=== PATIENT | female | born 2000 | race African-American/Black ===

== ENCOUNTER 2020-02-29 11:53 | Emergency (ER) | payer OTHER ==
[~2020-02-29] VITALS: Ht 152.4 cm; Wt 54.5 kg
[2020-02-29] MEDS ORDERED: ABX PO (12:05)
[2020-02-29 12:46] VITALS: BP 106/61
== END 2020-02-29 12:57 | disposition home or self-care (01) ==
LOC: EMS 11:54
DX: U07.1 COVID-19 (principal); F12.90 Cannabis use, unspecified, uncomplicated
CPT/HCPCS: 71045-TC

== ENCOUNTER 2022-05-31 18:42 | Emergency (ER) | payer OTHER ==
[~2022-05-31] VITALS: Ht 154.9 cm; Wt 49.5 kg
[~2022-05-31 18:42] MED LIST: ABX PO
[2022-05-31] MEDS ORDERED: IBUPROFEN 600 MG TABLET PO ONE (20:30)
[2022-05-31] MEDS ORDERED: ACETAMINOPHEN 325 MG TABLET PO ONE (20:30)
[2022-05-31] MEDS ORDERED: IBUP-2070 PO (20:31)
[2022-05-31 21:01] VITALS: BP 116/61
== END 2022-05-31 21:03 | disposition home or self-care (01) ==
LOC: EMS 18:44
DX: R51.9 Headache, unspecified (principal); F12.90 Cannabis use, unspecified, uncomplicated; V89.2XXA Person injured in unspecified motor-vehicle accident, traffic, initial encounter; Y93.89 Activity, other specified; Y92.89 Other specified places as the place of occurrence of the external cause; Y99.8 Other external cause status
CPT/HCPCS: 99283

== ENCOUNTER 2023-05-20 04:41 | Emergency (ER) | payer OTHER ==
[~2023-05-20] VITALS: Ht 157.5 cm; Wt 54.0 kg
[~2023-05-20 04:41] MED LIST changes: -ABX PO; +IBUP-1492 PO
[2023-05-20 04:48] VITALS: TEMP 97.5
[2023-05-20] MEDS ORDERED: IBUP-1492 PO (05:30)
[2023-05-20] MEDS ORDERED: IBUPROFEN 600 MG TABLET PO ONE (05:30)
[2023-05-20 05:57] VITALS: BP 110/60; PULSE 60; RESP 15
== END 2023-05-20 05:58 | disposition home or self-care (01) ==
LOC: EMS 04:46
DX: S46.812A Strain of other muscles, fascia and tendons at shoulder and upper arm level, left arm, initial encounter (principal); F12.90 Cannabis use, unspecified, uncomplicated; V49.88XA Car occupant (driver) (passenger) injured in other specified transport accidents, initial encounter; Y93.89 Activity, other specified; Y92.481 Parking lot as the place of occurrence of the external cause; Y99.8 Other external cause status
CPT/HCPCS: 99282; Z7502

== ENCOUNTER 2024-03-04 05:34 | Emergency (ER) | payer OTHER ==
[~2024-03-04] VITALS: Ht 152.4 cm; Wt 54.4 kg
[2024-03-04 05:40] VITALS: BP 107/57; PULSE 71; RESP 18; TEMP 98.1
== END 2024-03-04 06:41 | disposition home or self-care (01) ==
LOC: EMS 05:35
DX: S60.445A External constriction of left ring finger, initial encounter (principal); F17.210 Nicotine dependence, cigarettes, uncomplicated; W49.04XA Ring or other jewelry causing external constriction, initial encounter; Y93.89 Activity, other specified; Y92.89 Other specified places as the place of occurrence of the external cause; Y99.8 Other external cause status
CPT/HCPCS: 99282; Z7502

== ENCOUNTER 2024-08-05 20:18 | Emergency (ER) | payer OTHER ==
[~2024-08-05] VITALS: Ht 154.9 cm; Wt 120.0 kg
[2024-08-05 21:01] VITALS: TEMP 98.2
[2024-08-05 22:02] LABS: BASOPHILS % (AUTO) 0.6 % (0.0-2.0); EOSINOPHILS % (AUTO) 0.8 % (1.0-6.0); HEMATOCRIT 36.4 % (36-46); HEMOGLOBIN 12.1 g/dL (12.0-16.0); LYMPHOCYTES # (AUTO) 2.5 K/uL (1.0-4.8); MEAN CORPUSCULAR HEMOGLOBIN 29.6 pg (26.0-34.0); MEAN CORPUSCULAR HGB CONC 33.3 G/dL (31.0-37.0); MEAN CORPUSCULAR VOLUME 89 fL (80-100); MONOCYTES # (AUTO) 0.7 K/uL (0.1-1.0); NEUTROPHILS # (AUTO) 4.7 K/uL (1.8-7.7); NEUTROPHILS % (AUTO) 58.6 % (40.0-70.0); PLATELET COUNT (AUTO) 321 K/uL (150-450); WHITE BLOOD COUNT (AUTO) 8.1 K/uL (4.5-11.0)
[2024-08-05 22:05] LABS: APPEARANCE,URINE CLEAR (CLEAR); BILIRUBIN,URINE NEGATIVE (NEGATIVE); COLOR,URINE LIGHT YELLOW (YELLOW); GLUCOSE, URINE (UA) NEGATIVE (NEGATIVE); KETONES,URINE NEGATIVE (NEGATIVE); LEUKOCYTE ESTERASE ,URINE NEGATIVE (NEGATIVE); NITRATE,URINE NEGATIVE (NEGATIVE); OCCULT BLOOD,URINE NEGATIVE (NEGATIVE); PH,URINE 7.5 (5.0-8.0); PROTEIN,URINE NEGATIVE (NEGATIVE); SPECIFIC GRAVITIY, URINE 1.026 (1.003-1.030); UROBILINOGEN,URINE <=1.0 mg/dL (<=1.0)
[2024-08-05 22:12] LABS: ANION GAP 7 mmol/L (8-16); CALCIUM, TOTAL 8.8 mg/dL (8.8-10.5); CARBON DIOXIDE 29 mmol/L (22-29); CHLORIDE 103 mmol/L (98-107); CREATININE 0.79 mg/dL (0.60-1.30); GLOMERULAR FILTR. RATE CALC > 60 mL/min (>60); GLUCOSE,RANDOM 100 mg/dL (70-110); POTASSIUM 3.8 mmol/L (3.5-5.1); SODIUM SERUM 139 mmol/L (136-145); UREA NITROGEN, BLOOD 14 mg/dL (7-18)
[2024-08-05 22:24] LABS: ALANINE AMINOTRANSFERASE 22 U/L (12-78); ALBUMIN 3.8 g/dL (3.4-5.0); ALKALINE PHOSPHATASE 92 U/L (46-116); ASPARTATE AMINOTRANSFERASE 19 U/L (15-37); BILIRUBIN,TOTAL 0.2 mg/dL (0.1-1.0); HCG,QUANTITATIVE < 1 mIU/mL (0-6); TOTAL PROTEIN, SERUM 7.9 g/dL (6.4-8.2)
[2024-08-05 22:26] LABS: BILIRUBIN,DIRECT < 0.05 mg/dL (0.00-0.20)
[2024-08-05 23:21] VITALS: BP 112/54; PULSE 65; RESP 18; O2SAT 100
== END 2024-08-06 00:07 | disposition home or self-care (01) ==
LOC: EMS 20:18
DX: N93.9 Abnormal uterine and vaginal bleeding, unspecified (principal); R10.2 Pelvic and perineal pain; F12.90 Cannabis use, unspecified, uncomplicated
CPT/HCPCS: 80048; 80076; 81003; 84702; 85025; 99283